=== PATIENT | male | born 2000 | race Caucasian/White ===

== ENCOUNTER 2024-02-02 13:16 | Emergency (ER) | payer BC ==
[~2024-02-02] VITALS: Ht 180.3 cm; Wt 102.3 kg
[2024-02-02 13:23] VITALS: TEMP 100.5
[2024-02-02] MEDS ORDERED: Ibuprofen 600 MG TAB PO ONE (15:15)
[2024-02-02] MEDS ORDERED: Albuterol 90 MCG/PUFF 8 GM MDI IH ONE (16:00)
[2024-02-02] MEDS ORDERED: Albuterol/Ipratropium 3 MG-0.5 MG/3 ML Neb Soln IH ONE (16:00)
[2024-02-02] MEDS ORDERED: predniSONE 10 MG TAB PO ONE (16:00)
[2024-02-02] MEDS ORDERED: Doxycycline Monohydrate 100 MG CAP PO ONE (16:00)
[2024-02-02] MEDS ORDERED: NS 1,000 ML IV ONE (16:00)
[2024-02-02] MEDS ORDERED: DOXYCYCLINE 10100 MG PO (16:12)
[2024-02-02] MEDS ORDERED: PREDNISONE50 MG PO (16:12)
[2024-02-02 17:20] VITALS: BP 109/57; PULSE 106
== END 2024-02-02 17:23 | disposition home or self-care (01) ==
LOC: COL.ER 13:16
DX: J40 Bronchitis, not specified as acute or chronic (principal)
CPT/HCPCS: J7030; J7512